=== PATIENT | female | born 1945 | race Caucasian/White ===

== ENCOUNTER 2016-08-27 10:30 | Inpatient (IN) | payer MEDICARE, OTHER ==
[~2016-08-27] VITALS: Ht 170 cm; Wt 102.0 kg
[2016-08-27 10:45] LABS: CREATININE 1.1 mg/dL (0.5-1.0); POTASSIUM 4.5 mmol/L (3.5-5.1)
[2016-08-27 13:53] LABS: BILIRUBIN NEGATIVE (NEGATIVE); BLOOD NEGATIVE Ery/uL (NEGATIVE); CLARITY CLEAR (CLEAR); COLOR YELLOW (YELLOW); GLUCOSE (U) NORMAL (NORMAL); KETONE (U) NEGATIVE (NEGATIVE); LEUKOCYTES NEGATIVE Leu/uL (NEGATIVE); NITRITE NEGATIVE (NEGATIVE); PROTEIN NEGATIVE (NEGATIVE); SPECIFIC GRAVITY 1.015 (1.001-1.030); UROBILINOGEN 0.2 mg/dL (0.2-1.0); pH 6.5 (5.0-9.0)
[2016-08-28 04:04] LABS: HCT 35.9 % (37.0-47.0); HGB 11.3 g/dl (12.5-16.0); MCH 29.2 pg (25.0-31.0); MCHC 31.5 g/dL (32.0-36.0); MCV 92.8 fL (78.0-100.0); MPV 9.4 fL (6.0-9.5); RBC 3.87 M/uL (4.20-5.40); RDW 14.1 % (11.5-14.0); WBC 7.1 K/uL (4.0-10.5)
[2016-08-28 04:37] LABS: CREATININE 1.1 mg/dL (0.5-1.0); POTASSIUM 5.4 mmol/L (3.5-5.1)
[2016-08-29 04:44] LABS: HCT 34.3 % (37.0-47.0); MCH 29.3 pg (25.0-31.0); MCHC 32.1 g/dL (32.0-36.0); MCV 91.2 fL (78.0-100.0); MPV 9.9 fL (6.0-9.5); RBC 3.76 M/uL (4.20-5.40); WBC 7.5 K/uL (4.0-10.5)
[2016-08-29 12:24] LABS: CREATININE 1.1 mg/dL (0.5-1.0); POTASSIUM 4.2 mmol/L (3.5-5.1)
[2016-08-30 08:19] LABS: HGB 9.8 g/dl (12.5-16.0); MCH 29.6 pg (25.0-31.0); MCHC 32.7 g/dL (32.0-36.0); MCV 90.6 fL (78.0-100.0); MPV 10.3 fL (6.0-9.5); RBC 3.31 M/uL (4.20-5.40); WBC 7.7 K/uL (4.0-10.5)
[2016-08-30 08:44] LABS: CREATININE 1.3 mg/dL (0.5-1.0); POTASSIUM 3.8 mmol/L (3.5-5.1)
[2016-08-30 08:52] LABS: BILIRUBIN NEGATIVE (NEGATIVE); BLOOD 1+ Ery/uL (NEGATIVE); CLARITY CLEAR (CLEAR); COLOR YELLOW (YELLOW); GLUCOSE (U) NORMAL (NORMAL); KETONE (U) NEGATIVE (NEGATIVE); LEUKOCYTES TRACE Leu/uL (NEGATIVE); NITRITE NEGATIVE (NEGATIVE); PROTEIN TRACE (LOW) mg/dL (NEGATIVE); UROBILINOGEN 0.2 mg/dL (0.2-1.0)
[2016-08-30 09:09] LABS: BACTERIA 1+
[2016-08-31 07:54] LABS: HCT 31.7 % (37.0-47.0); HGB 10.2 g/dl (12.5-16.0); MCH 29.2 pg (25.0-31.0); MCHC 32.2 g/dL (32.0-36.0); MCV 90.8 fL (78.0-100.0); MPV 9.7 fL (6.0-9.5); RBC 3.49 M/uL (4.20-5.40); RDW 14.1 % (11.5-14.0); WBC 7.2 K/uL (4.0-10.5)
[2016-08-31 08:21] LABS: POTASSIUM 3.7 mmol/L (3.5-5.1)
[2016-09-01 06:52] LABS: HCT 30.2 % (37.0-47.0); HGB 9.6 g/dl (12.5-16.0); MCH 28.9 pg (25.0-31.0); MCHC 31.8 g/dL (32.0-36.0); MPV 9.1 fL (6.0-9.5); RBC 3.32 M/uL (4.20-5.40); RDW 14.2 % (11.5-14.0); WBC 6.5 K/uL (4.0-10.5)
[2016-09-01 07:08] LABS: CREATININE 1.1 mg/dL (0.5-1.0); POTASSIUM 3.2 mmol/L (3.5-5.1)
== END 2016-09-01 18:25 | DRG 469 ==
LOC: FMS 12:00
PROVIDERS: Internal Medicine; Nurse Practitioner Adult Health; ADMIT Legal Medicine
PROC: 8E0YXBZ Computer Assisted Procedure of Lower Extremity (ICD-10-PCS; 2016-08-27)
PROC: 0SRC0J9 Replacement of Right Knee Joint with Synthetic Substitute, Cemented, Open Approach (ICD-10-PCS; principal; 2016-08-27 12:00)
DX: M17.11 Unilateral primary osteoarthritis, right knee (principal); G93.40 Encephalopathy, unspecified; M21.161 Varus deformity, not elsewhere classified, right knee; I25.10 Atherosclerotic heart disease of native coronary artery without angina pectoris; I10 Essential (primary) hypertension; E78.5 Hyperlipidemia, unspecified; Z87.440 Personal history of urinary (tract) infections; K21.9 Gastro-esophageal reflux disease without esophagitis; F32.9 Major depressive disorder, single episode, unspecified; F41.9 Anxiety disorder, unspecified; I25.2 Old myocardial infarction; Z88.2 Allergy status to sulfonamides; Z88.8 Allergy status to other drugs, medicaments and biological substances; Z83.3 Family history of diabetes mellitus; Z82.49 Family history of ischemic heart disease and other diseases of the circulatory system; Z83.6 Family history of other diseases of the respiratory system; Z98.42 Cataract extraction status, left eye; Z98.41 Cataract extraction status, right eye; Z96.1 Presence of intraocular lens
CPT/HCPCS: 36415; 70450; 73560; 80048; 81001; 81003; 86850; 86900; 86901; 87088; 87640; 87641; 87900; 88305; 88311; 94010; 94762; 97110; 97116; 97162; 97166; 97530; 97530-GP; 97535; C1776; J0131; J0697; J2270; J2274; J2405; J2704; J2795; J3010; J3370

== ENCOUNTER 2016-09-01 18:24 | Inpatient (IN) | payer MEDICARE, OTHER ==
--- NOTE | 2016-09-04 16:54 | NUR ---
PT. DID NOT WISH TO ATTEND [facility]. HER BROTHER (POA) WAS UNABLE TO ATTEND DUE TO HAVING TO TAKE HIS TO A DR. VORA. I WAS ADVISED TO CALL HER BROTHER.
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
--- NOTE | 2016-09-06 15:20 | NUR ---
LATE ENTRY: PT. BROTHER, TAZ AND SISTER, TIEN, ASK TO MEET WITH ME REGADING THEIR SISTER. PT. STATES THAT SHE IS GOING HOME. HER BROTHER WHO IS HER POA, STATES THAT SHE NEEDS TO STAY A WHILE LONGER. PT. RESIDES ALONE AND THERE WILL BE NO ONE TO TAKE CARE OF HER. ADVISED TAZ THAT WE WILL PROVIDE CARE FOR PT. LONG SHE MEETS CRITERIA. FAMILY IS CONCERNED THAT SHE WILL BE RELEASED TOO SOON. ADVISED TAZ TO ATTEND THE CARE TEAM [facility]. ON SATURDAY. ALSO TO ENCOURAGE PT. TO STAY AND COMPLETE HER THERAPY WITH US.
== END 2016-09-15 11:40 | disposition home health service (06) | DRG 561 ==
LOC: FSNU 18:24
PROVIDERS: ADMIT Legal Medicine
DX: Z47.1 Aftercare following joint replacement surgery (principal); G40.909 Epilepsy, unspecified, not intractable, without status epilepticus; I10 Essential (primary) hypertension; Z96.651 Presence of right artificial knee joint; I25.10 Atherosclerotic heart disease of native coronary artery without angina pectoris; E78.5 Hyperlipidemia, unspecified; K21.9 Gastro-esophageal reflux disease without esophagitis; F32.9 Major depressive disorder, single episode, unspecified; M13.80 Other specified arthritis, unspecified site; Z87.440 Personal history of urinary (tract) infections; Z90.710 Acquired absence of both cervix and uterus
CPT/HCPCS: 92523; 97110; 97116; 97161; 97166; 97530; 97530-GP; 97532; 97535